=== PATIENT | female | born 1970 | race Caucasian/White ===

== ENCOUNTER 2018-12-12 08:50 | Emergency (ER) | payer BC ==
[2018-12-12 09:24] VITALS: BP 110/67
[2018-12-12] MEDS ORDERED: Ondansetron ODT TAB* 4 MG PO ONE (09:36)
[2018-12-12] MEDS ORDERED: Ondansetron ODT TAB* 4 MG ONE (09:39)
--- NOTE | 2018-12-12 12:48 | UC ---
Ear Complaint HPI - HPI Summary HPI Summary: patient comes in today with complaints of acute ear and jaw pain on the left side, she is also very nauseated. states it started last night, has had cold symptoms, but does not remember any fever or other symptoms. 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 there is swelling noted to the left jaw line. palpable swollen gland noted. Patient experiencing some vertigo and nausea as well. - History of Current Complaint Chief Complaint: UCEar Stated Complaint: LEFT EAR/NECK PAIN NAUSEA Time Seen by Provider: 12/12/18 09:24 Hx Obtained From: Patient ?: No Onset/Duration: Sudden Onset, Lasting Hours Severity Initially: Severe Severity Currently: Severe - patient took 50 mg of tramadol prior to arrival Pain Intensity: 0 - Allergies/Home Medications Allergies/Adverse Reactions: Allergies Allergy/AdvReac Type Severity Reaction Status Date / Time No Known Allergies Allergy Verified 12/12/18 09:16 Home Medications: Home Medications Acetaminophen [Acetaminophen Extra Strength] 1,000 mg PO ONCE PRN 12/12/18 [ History Confirmed 12/12/18] Amoxicillin/Clavulanate TAB* [Augmentin TAB 875*] 875 mg PO ONCE 12/12/18 [ History Confirmed 12/12/18] Levothyroxine TAB* [Synthroid TAB*] 88 mcg PO DAILY 12/12/18 [History Confirmed 12/12/18] Meloxicam [Mobic] 15 mg PO DAILY 12/12/18 [History Confirmed 12/12/18] traMADol TAB* [Ultram*] 100 mg PO Q4HR 12/12/18 [History Confirmed 12/12/18] PMH/Surg Hx/FS Hx/Imm Hx Previously Healthy: Yes - Surgical History Surgical History: Yes Surgery Procedure, Year, and Place: thyroid. wrist. ankle - Family History Known Family History: Positive: Hypertension - Social History Alcohol Use: Occasionally Substance Use Type: None Smoking Status (MU): Never Smoked Tobacco Review of Systems All Other Systems Reviewed And Are Negative: Yes Constitutional: Positive: Negative Skin: Positive: Negative Eyes: Positive: Negative ENT: Positive: Sore Throat, Ear Ache Respiratory: Positive: Negative Cardiovascular: Positive: Negative Gastrointestinal: Positive: Nausea Genitourinary: Positive: Negative Motor: Positive: Negative Neurovascular: Positive: Negative Musculoskeletal: Positive: Negative Neurological: Positive: Headache Psychological: Positive: Negative Is Patient Immunocompromised?: No Physical Exam Triage Information Reviewed: Yes Appearance: Well-Nourished, Ill-Appearing, Pain Distress Vital Signs: Initial Vital Signs Temp 97.2 F 12/12/18 09:19 Pulse 57 12/12/18 09:19 Resp 14 12/12/18 09:19 BP 110/67 12/12/18 09:19 Pulse Ox 99 12/12/18 09:19 Vital Signs Reviewed: Yes Eye Exam: Normal ENT: Positive: Pharynx normal, TMs normal Dental: Positive: Other: - swelling of the left side of jaw noted, no visible dental issues, oral mucus pink Neck: Positive: Supple, Tenderness @ - left side of neck and jaw line Respiratory Exam: Normal Respiratory: Positive: Chest non-tender, Lungs clear, Normal breath sounds Cardiovascular Exam: Normal Cardiovascular: Positive: RRR, No Murmur, Pulses Normal Abdominal Exam: Normal Abdomen Description: Positive: Nontender, No Organomegaly, Soft Bowel Sounds: Positive: Present Musculoskeletal Exam: Normal Neurological Exam: Normal Psychological Exam: Normal Skin Exam: Normal Ear Complaint Course/Dx - Course Course Of Treatment: hx obtained, exam performed ,meds reviewed, zofran given, tested for flu, differntial included possiblity of mumps, but she is vaccinated and no exposure noted, not typical presentation. Parotitis more likely. - Differential Dx/Diagnosis Differential Diagnosis/HQI/PQRI: Otitis Media, Perforated TM, Pharyngitis, URI Provider Diagnosis: Parotitis not due to mumps Discharge - Sign-Out/Discharge Documenting (check all that apply): Patient Departure All imaging exams completed and their final reports reviewed: No Studies - Discharge Plan Condition: Stable Disposition: HOME Prescriptions: Amoxicillin/Clavulanate TAB* [Augmentin TAB 875*] 875 mg PO BID #20 tab Ondansetron ODT TAB* [Zofran 4 MG Odt TAB*] 4 mg PO Q8H PRN #12 tab.odt PRN Reason: Nausea Additional Instructions: 1. take the medication as prescribed. 2. Warm compresses to the area frequently. 3. COntinue with pain medication as needed. 4. If not improving in 48 hour, follow up. - Billing Disposition and Condition Condition: STABLE Disposition: Home
== END 2018-12-12 10:39 | disposition home or self-care (01) ==
LOC: UCCORT 08:50
DX: K11.20 Sialoadenitis, unspecified (principal)
CPT/HCPCS: 99202; A9270-GY; G0463